=== PATIENT | female | born 1940 | race Caucasian/White ===

== ENCOUNTER → 2017-10-09 10:37 | Outpatient (CLI) | payer MEDICARE, SELFPAY ==
--- NOTE | 2017-10-09 11:20 | BRBX_PTH ---
PATIENT: LALITA PAUL LOC: [facility] U#:[id number] AGE/SX: 84/F ROOM: RE10/09/[address]: Dr. Ashlie Hermosillo MD : 1940 BED: DIS: SPEC #: [id number] RECD: 10/09/17 14:44 STATUS: [place] RE #: [id number] RASHID: 10/09/17 11:[address]: Ashlie Hermosillo DEPT: SURGICAL PATHOLOGY RECD BY: Dilan Bey ENTERED: 10/09/17 14:44 SP TYPE: BREAST BX OTHR DR: Dr. Trish St MD Tissues: Right breast, NOS Procedures: Surgery Specimen Level IV HEADER OPERATION: Right breast stereotactic needle core biopsy PRE-OP DIAGNOSIS: 12 o?clock microcalcifications right breast TISSUE SUBMITTED: Right breast ISCHEMIC TIME: 1 minute FIXATION TIME: 8 hours MICROSCOPIC DIAGNOSIS Right breast stereotactic needle core biopsy: Fragments of fatty benign breast tissue, no significant histopathologic abnormality. Microcalcifications are not seen. Negative for atypia or malignancy in the submitted specimen. NENA:jey 10/10/17 COMMENT Multiple levels are examined. Correlation with clinical, radiologic findings and appropriate follow up are necessary, repeat biopsy is suggested if clinically indicated.. MICROSCOPIC DESCRIPTION Slides are reviewed. GROSS DESCRIPTION Received in fixative is one container labeled with the patient's name and designated right breast. The specimen consists of multiple elongated fragments of gong-yellow fibroadipose tissue that in aggregate measure 5 x 3 x 0.6 cm. The entire specimen is submitted in four cassettes. / NENA:jey 10/09/17 TC:4 CPT: 24413
--- NOTE | 2017-10-09 13:53 | OP.PCM_ITS ---
Report of Operation Date of Procedure: 10/09/17 Pre-Operative Diagnosis: abnormal calcifications on right breast mammograms Post-Operative Diagnosis: same Surgery/Procedure Performed:: right stereotactic breast biopsy Description of Surgical Findings:: central, midline, slightly superior at 12:00 abnormal calcifications Specimen's removed: right breast tissue Estimated Blood Loss (mL): < 1 Description of Procedure: After informed consent was given, the patient was brought into the breast biopsy suite and then placed in the prone position on the stereotactic biopsy table. The patient?s right breast was then placed at the opening at the head of the table. A pier master assistant compression mammogram was then obtained in the CC view. The suspicious radiological lesion was then identified. Stereo pictures of the lesion were then taken for XYZ coordinates. The Mammotome biopsy stylus was then positioned where it would be entering into the patient?s breast. The skin at this site was then cleansed with a surgical skin preparation. The skin and subcutaneous tissues at this site were then infiltrated with 1% xylocaine. A small skin incision was made with an 11 blade scalpel. The biopsy stylus was then positioned into the patient?s breast at the proper coordinates of depth. Using the Mammotome vacuum-assist device, several core samples of breast tissue were obtained. A specimen mammogram was the obtained and revealed that there were some calcification in the specimen, but only one seen, therefore more tissue was obtained. This was done and a second specimen mammogram revealed more calcifications. A hemostatic marker clip was then placed into the biopsy cavity and a pier master assistant film revealed that it was properly deployed. The patient was then placed in the supine position and pressure was applied to the breast until no active bleeding was noted. Steristrips were applied to reapproximate the skin. A unilateral mammogram in the CC and MLO view were then taken which revealed that the marker clip was in the same area as the previous suspicious lesion. The patient tolerated the procedure well and was discharged from the breast biopsy suite in good condition. Grafts/Implants Used: Mammotome clip lot [id number] - Complications none noted - Admit VTE Documentation VTE Present on Admission: No - low risk procedure for DVT/PE
== END ==
PROVIDERS: Family Provider Internal Medicine; PCP Internal Medicine; Visit Provider Surgery
DX: R92.1 Mammographic calcification found on diagnostic imaging of breast (principal); D75.9 Disease of blood and blood-forming organs, unspecified; E11.9 Type 2 diabetes mellitus without complications; I10 Essential (primary) hypertension; Z79.84 Long term (current) use of oral hypoglycemic drugs; Z85.038 Personal history of other malignant neoplasm of large intestine; Z86.718 Personal history of other venous thrombosis and embolism; Z79.899 Other long term (current) drug therapy
CPT/HCPCS: 19081; 88305; J7050; A4648

== ENCOUNTER 2023-01-19 07:30 | Outpatient (RCR) | payer MEDICARE, SELFPAY ==
--- NOTE | 2022-12-13 08:45 | HP.PTEVAL ---
Patient's Visit Information LALITA PAUL is a 82 year old F referred to Physical Therapy by Dr. Trish St MD with a diagnosis of L knee OA/DDD. Date of Evaluation: 12/13/22 Physical Therapist: LUPILLO Torres - Visit Plan Frequency: 2x /Week Duration: 2 Months Plan: 2X/ week for 8 weeks for L knee AROM, stretching of HS and gastroc, L knee and hip strength, core strength, gait training, functional transfers with HEP. HEP: bridges - Subjective Dr said that the pt has bone on bone and that she needed to go to PT and that surgery is booked out until April. The Dr is [facility] in [place]. Her L knee is painful and if she does not wear a brace she will fall a lot. She has a lot of pain in the L knee. She has been on the rollator since her sciatica started (taken 3 x-rays) and was Oct 19. Her sciatica is better since using the rollator and now she has all her pain in her knees. She uses her R knee more now due to the L knee hurting so bad. She has stairs at home but does not have to use them. She has 2 steps out to the garage and has a handle to hang onto....she backs down the steps and goes up with R foot first. If she goes up with her L foot first, she will fall. She has borrowed a wheelchair and goes around the house in that to dust, cooking etc. Can't vaccum. - Pain L knee pain Pain Intensity (Out of 10): 5 Pain Intensity Range: 8 Comment: with walking R knee pain Pain Intensity (Out of 10): 0 Pain Intensity Range: 0 - Objective Gait: walks with short stride with rollator walker with decrease stance time on the L. Decrease heel to toe gait pattern. Pt was fatigued walking back to the treatment rooms and slow due to increase pain of the L knee. Standing heel raises about 50% normal ROM. Pt is not able to raise her toes up. Standing to supine: struggles to get legs up onto the mat table. Tightness in B gastroc and HS,... HS cramps with knee kept in flexion too long. LE MMT: R hip flex 9.4 and L hip flex 6.6. R knee ext 14.1 and L 9.9. R knee flex 13.2 and L 8.2. R knee AROM: 0- 104. L knee AROM: 0-95. Bridges (1/2 normal ROM and weakness present). SLR B... likes to bend knees and weakness present... Sit to stand: needs heavy use of B UE's to get out of the chair and took a few seconds to stand and get bearings before able to walk. - Balance/Special Test Scores Lower Extremity Functional Score: 38 - Goals Goal 1:: I HEP Goal Time Frame: 6-8 Weeks Goal 2:: Be able to go up the stairs without having to pull self up with her UE's Goal Time Frame: 6-8 Weeks Goal 3:: Be able to walk with her rollator with longer strides Goal Time Frame: 6-8 Weeks Goal 4:: Increase L knee strength (at time of the eval: R hip flex 9.4 and L hip flex 6.6. R knee ext 14.1 and L 9.9. R knee flex 13.2 and L 8.2) Goal Time Frame: 6-8 Weeks Goal 5:: Increase L knee AROM (at time of the eval: L knee AROM: 0-95) Goal Time Frame: 6-8 Weeks - Rehabilitation Potential Rehabilitation Potential: Good - Anticipated Interventions Patient/Client Instruction: Educate patient on: Condition, Plan of Care For the Purpose of:: To decrease pain, To increase ROM, To improve nutrient delivery to tissue, To improve muscle performance and motor function, To improve ability to perform ADL's, To increase tolerance to activity/condition/position, To improve performance and independence with ADL's, To decrease level of supervision to perform tasks, To improve ability of physical actions for home/community/work/leisure, To improve gait and locomotor functions, To improve health of tissue, To decrease soft tissue restriction, To increase flexibility/ROM, To improve safety with gait Therapeutic Exercise to Include: Strength training, Endurance training, Flexibilty training, Gait and locomotor training, Neuromotor development, Passive ROM, Active ROM, Dynamic Lumbar Stabilization For the Purpose of:: To decrease pain, To increase ROM, To increase oxygenation perfusion, To improve muscle performance and motor function, To improve ability to perform ADL's, To increase tolerance to activity/condition/position, To improve performance and independence with ADL's, To decrease level of supervision to perform tasks, To improve ability of physical actions for home/community/work/leisure, To decrease soft tissue restriction, To increase flexibility/ROM Functional Training to Include: Gait training For the Purpose of:: To improve gait and locomotor functions, To improve safety with gait Cryotherapy (ice pack, ice massage): Yes Thermo therapy (hot pack): Yes Ultrasound (thermal/non thermal): Yes For the Purpose of:: To decrease pain, To decrease swelling/inflammation, To increase ROM Thank you for the opportunity to evaluate your patient. For Medicare and Medicare HMO plans, please review the plan of care and approve it. It will need to be FAXED BACK to us at [phone] for Medicare purposes. For Medicare only, by signing this I certify the plan of care. Please let me know if there are questions or concerns regarding this plan of care. Physician Signature: Date:
--- NOTE | 2023-01-19 08:06 | HP.PTDCSUM ---
It has been my pleasure to treat LALITA PAUL referred by Dr. Trish St MD, with the diagnosis of L knee OA/DDD for a total of 9 visit(s). Discharge Date: 01/19/23 Please see the following information for a summary of their discharge status. Subjective: Pt is having less pain in her nee and she is also drinking a tea that is helping her arthritis. She can not walk anywhere without her rollator. She is able to to cook and clean by sitting in her WC and wheel herself around. Her back pain has been really good too. L knee pain Pain Intensity (Out of 10): 0 R knee pain Pain Intensity (Out of 10): 0 % Improvement: 40 Objective/Function: R hip flex 11.7 and L hip flex 9. R knee ext 15.2 and L 12.2. R knee flex 13.2 and L 12. L knee AROM: 0-119. Stairs: Pt avoids the stairs. Gait: walks with a straight cane in the R hand with min A with good lorene but some decrease balance. Pt did not feel safe walking with the game without assistance Goal 1:: I HEP Goal Progress: Goal Met Goal 2:: Be able to go up the stairs without having to pull self up with her UE's Goal Progress: Not Progressing Goal 3:: Be able to walk with her rollator with longer strides Goal Progress: Progressing Goal 4:: Increase L knee strength (at time of the eval: R hip flex 9.4 and L hip flex 6.6. R knee ext 14.1 and L 9.9. R knee flex 13.2 and L 8.2) Goal Progress: Goal Met Goal 5:: Increase L knee AROM (at time of the eval: L knee AROM: 0-95) Goal Progress: Goal Met Plan: DC PT at this time to [facility]. Pt will be getting a consult with Dr Arana. Discharge Comments: DC PT to [facility] If there are questions or concerns regarding this patient's physical therapy, please feel free to call me at [phone]. Thank you for the referral of this patient. Sincerely, Aniya Lopez, MPT Balance/Gait/Functional tests - Balance/Special Test Scores Lower Extremity Functional Score: 39
== END 2023-01-19 15:21 | disposition home or self-care (01) ==
LOC: PT 07:30
PROVIDERS: PCP Internal Medicine; Referring Provider Internal Medicine; Visit Provider Internal Medicine
DX: M17.12 Unilateral primary osteoarthritis, left knee (principal)
CPT/HCPCS: 97110; 97161; 97530

== ENCOUNTER → 2023-01-19 | Outpatient (CLI) | payer MEDICARE, SELFPAY ==
--- NOTE | 2023-01-19 08:34 | BI_ITS ---
MAMMOGRAPHY - BILATERAL DIAGNOSTIC REASON FOR EXAM: Female, 82 years old. Left breast lump and left axillary lump. PERTINENT HISTORY: Prior right stereotactic breast biopsy. TECHNIQUE: Digital bilateral breast chavez (3D mammographic acquisition) in the CC and MLO projections. 2-D mediolateral oblique (MLO) and craniocaudad (CC) views of both breasts were obtained. CAD: Full Field Digital Mammography with Computer Added Detection was performed. COMPARISON: Comparison is made with prior study dated October 09, 2017. FINDINGS: Breast Composition: The breasts are almost entirely fatty. The palpable lump corresponds to a 1.7 cm x 2.3 cm mass in the deep central portion of the left breast. There is also evidence of enlarged left hilar lymph nodes. Correlation with ultrasound is recommended. No other significant abnormalities are identified. BI/DIAG MAMM W/CAD, BILAT IMPRESSION: The palpable lump corresponds to a 1.7 cm x 2.3 cm mass in the deep central portion of the left breast. Enlarged left axillary lymph nodes. Correlation with ultrasound is recommended. ASSESSMENT CATEGORY: BIRADS Category 0: Incomplete. Need additional imaging evaluation. A letter regarding these results will be sent to the patient by the facility within 30 days. Approximately 10% of breast cancers are not detected by mammography. A normal mammogram should not delay biopsy of a clinically suspicious abnormality. Electronically Signed: Sp Lozano MD at 9:53 EDT ,
--- NOTE | 2023-01-19 08:34 | US_ITS ---
STUDY: ULTRASOUND BREAST - LEFT REASON FOR EXAM: Female, 82 years old. Palpable lump left breast. TECHNIQUE: Axial and longitudinal images of the LEFT breast were performed with a high resolution ultrasound transducer. # OF IMAGES: 98 COMPARISON: Comparison is made with prior mammogram done earlier today. FINDINGS: LEFT Breast: The mammographic abnormality corresponds to a 1.9 cm x 2.6 cm x 2.1 cm hypoechoic irregular spiculated mass at the 5:00 position breast 5 cm from nipple. Adjacent to this, there are 2 subcentimeter hypoechoic irregular nodules with posterior acoustical shadowing. Multiple suspicious enlarged measuring of the left axillary lymph nodes. US/Breast Limited Unilateral IMPRESSION: Dominant mass at the 5:00 position breast at 5 cm from the nipple with multiple suspicious lymph nodes in the left axilla. Biopsy recommended. ASSESSMENT CATEGORY: BIRADS Category 5: Highly Suggestive of Malignancy - Appropriate Action Should Be Taken. A letter regarding these results will be sent to the patient by the facility within 30 days. Electronically Signed: Sp Lozano MD at 10:56 EDT ,
== END | disposition home or self-care (01) ==
PROVIDERS: PCP Internal Medicine; Referring Provider Internal Medicine; Visit Provider Internal Medicine
DX: N63.25 Unspecified lump in the left breast, overlapping quadrants (principal)
CPT/HCPCS: 76642; 77062; 77066; G0279